=== PATIENT | female | born 1970 | race Caucasian/White ===

== ENCOUNTER 2017-06-01 20:57 | Emergency (ER) | payer OTHER ==
[~2017-06-01] VITALS: Ht 157.5 cm; Wt 100.0 kg
[~2017-06-01 20:57] MED LIST: ALBU8.5H2 INHALATION; BACL20TA PO; FLUT100D2 IH; IBUP-1827 PO; LISI10TA PO; MONT10TA20 PO; SUMA50TA31 PO; mirena IMPLANT
[2017-06-01 21:04] VITALS: BP 141/93; PULSE 104; RESP 24; O2SAT 97
--- NOTE | 2017-06-01 21:13 | ED.REPORT ---
HPI-Dyspnea / Wheezing Date of Service Jun 01, 2017 ED Provider: Alexsander Valera MD Pt is a 46 year old female with a history of asthma and HTN who presents to the ED complaining of SOB onset 3 days ago. She c/o associated cough. She denies fever, leg pain or swelling, and any other symptoms. Pt reports that she was seen by [facility] yesterday; her chest x-ray was negative, and she was prescribed azithromycin and prednisone by her PCP 4 days ago without relief. The pt denies a history of blood clots, and she also denies smoking. Nursing Notes Stated Complaint: SHORTNESS OF BREATH Chief Complaint: Respiratory Complaints Nursing Notes Reviewed: Yes Allergies: Coded Allergies: acetaminophen (Unverified Allergy, Unknown, hives, 08/06/16) erythromycin base (Unverified Allergy, Unknown, nausea, 08/06/16) Uncoded Allergies: ADHESIVE TAPES (Allergy, Unknown, blisters, 08/06/16) Scheduled ([mirena]) 20mcg/24hours 20 MCG IMPLANT DAILY Baclofen (Baclofen) 20 Mg Tablet 20 MG PO HS Fluticasone Propionate (Flovent Diskus) 100 Mcg Disk.w.dev 1 PUFF IH BID Lisinopril (Lisinopril) 10 Mg Tablet 10 MG PO DAILY Montelukast (Singulair) 10 Mg Tablet 10 MG PO HS Prednisone (PredniSONE) 20 Mg Tablet 20 MG PO TID Scheduled PRN Albuterol HFA (Proair HFA) 8.5 Gm Hfa.aer.ad 2 PUFFS INHALATION Q4H PRN PRN For Shortness of Breath Benzonatate (Benzonatate) 200 Mg Capsule 200 MG PO TID PRN PRN For Cough Ibuprofen (Ibuprofen) 600 Mg Tablet 600 MG PO TID PRN PRN For Pain Sumatriptan Succinate (Imitrex) 50 Mg Tablet 50 MG PO Q2H PRN PRN migraine MR [id number] NTE 200mg/24hr General Time Seen by MD: 21:11 Chief Complaint Shortness of breath Hx Obtained From: Patient Arrived By: Walk-in Sudden in Onset?: No Onset Occurred: 3 days ago Symptom Duration: Since onset Severity: Current: No pain currently Severity: Maximum: No pain Recent Healthcare: Recent doctor visit Similar Sx Previous: No Past Medical History Past Medical History Right carpometacarpal joint trauma Reports: Asthma, Hypertension Past Surgical History Tubal ligation Bilateral shoulders Family History Denies blood clots Smoking History Never Smoker Social History Alcohol Use: Denies alcohol use Drug Use: Denies drug use Other Social History: Good social support, Ambulatory Status Independent Review of Systems Constitutional: Denies: Fever Respiratory: Reports: Non-productive cough, Shortness of breath Musculoskeletal: Denies: Extremity pain, Extremity swelling Complete sys rev & neg: except as marked. Physical Exam Initial Vital Signs Vital Signs (First) Date Time Temp Pulse Resp B/P Pulse Ox O2 Delivery O2 Flow Rate FiO2 06/01/17 21:04 37 104 24 141/93 97 Room Air Initial VS: Reviewed, Vital signs abnormal Head / Eyes: Atraumatic, Normocephalic Abdomen / GI: Soft, Non-tender Extremities: Vascular intact, Neuro intact Skin: Warm, Dry, No cyanosis Neurologic: Alert, Oriented, Nonfocal Psychiatric: Mood/affect normal, Behavior normal General/Constitutional: Awake, Alert, Cooperative Neck: Atraumatic, Full range of motion Respiratory / Chest: Atraumatic, Breath sounds = bilat Few scattered wheezes. Tachypneic and hyperventilating. Cardiovascular: Heart rate NL, Regular rhythm, Heart sounds NL Interpretation & Diagnostics Lab Results Interpretation Result Diagram: 06/01/17 21406/01/17 214 Test 06/01/17 21:45 White Blood Count 6.6th/mm3 (3.8-10.1) Red Blood Count 4.31mil/mm3 (3.90-5.20) Hemoglobin 12.9g/dL (12.0-15.6) Hematocrit 39.3% (35.0-46.0) Mean Corpuscular Volume 91.2fL (81-100) Mean Corpuscular Hemoglobin 29.9pg (27.0-35.0) Mean Corpuscular Hemoglobin Concent 32.8% (32.0-37.0) Red Cell Distribution Width 14.4% (12.3-15.4) Platelet Count 269bil/L (150-400) Neutrophils (%) (Auto) 69.7% (40-74) Lymphocytes (%) (Auto) 17.7% (14-46) Monocytes (%) (Auto) 11.9% (4-12) Eosinophils (%) (Auto) 0% (0-5) Basophils (%) (Auto) 0.2% (0-3) D-Dimer < 0.50mg/L FEU (<0.50) Sodium Level 137mEq/L (134-144) Potassium Level 4.3mEq/L (3.5-5.2) Chloride Level 99mEq/L (97-108) Carbon Dioxide Level 23mmol/L (18-29) Blood Urea Nitrogen 9mg/dL (6-24) Creatinine 0.82mg/dL (0.57-1.00) Estimat Glomerular Filtration Rate 107mL/min (>59) Glucose Level 113mg/dL (60-99) Calcium Level 9.5mg/dL (8.5-10.1) Total Bilirubin 0.2mg/dL (0.0-1.2) Aspartate Amino Transf (AST/SGOT) 22U/L (0-50) Alanine Aminotransferase (ALT/SGPT) 20U/L (0-32) Alkaline Phosphatase 46U/L (25-150) Troponin T 0.010ug/L (0.0-0.011) Total Protein 7.3g/dL (6.4-8.4) Albumin 4.0g/dL (3.4-5.0) Hold Aquino Top Tube Received (Received) Lab values outside NL range: no clinical significance. ECG Interpretation ECG Interpretation: Sinus rhythm with a rate of 95. Time: 21:49 Interpreted by: ED physician Re-Eval/Medical Decision Med Decision/Clinical Course 46-year-old who has had cough and wheezing for the last few days. She was seen at urgent care with a negative x-ray. She was placed on prednison 10 mg daily for 5 days and albuterol inhaler to be used twice daily. Her chest x-ray from that visit was reviewed and indeed was negative. She presents now with increasing respiratory distress and a cough that will not stop. She was given an nebulizer with albuterol and DuoNeb with improvement. She was also given a dose of Tessalon with improvement of her cough. She will be discharged home with increased dose of prednisone, Tessalon Perles for cough, and instructions to use her albuterol inhaler much more frequently as often as every 2 hours. No additional antibiotics were given. Source of Hx: Old records Re-Evaluation/Progress : Time of Eval: 22:58 )( Re-Eval Resp / Chest: Breath sounds normal Patient Status: Condition improved Re-Evaluation/Progress Note: Pt rechecked. Informed pt of results and plan for discharge. Pt understands and agrees with plan for discharge. F/U instructions and RTER warnings given. All questions addressed. Counseled Regarding: Diagnosis, Lab results, Need for follow-up, When/why to return to ED Discharge & Departure Impression: Primary Impression: Acute bronchitis Bronchitis organism: unspecified organism Qualified Code: J20.9 - Acute bronchitis, unspecified Additional Impression: Reactive airway disease Asthma severity: mild persistent Asthma complication type: with acute exacerbation Qualified Code: J45.31 - Mild persistent asthma with (acute) exacerbation Disposition: Home Discharge Condition All VS Reviewed: Yes Condition: Stable Patient Instructions: Reactive Airways Disease (ED) Additional Instructions: You may use your albuterol inhaler every 2 hours if needed. Increase your prednisone to 20 mg 3 times a day for 5 days. Benzonatate (Tessalon Perles) 200 mg 3 times daily as needed for cough. It is okay to use [id number] cough medications with this. Further antibiotics would not be helpful. Referrals: Juancarlos Gibbons DO (PCP) [facility] Attestation Portions of this note were transcribed by Adilene Torrez. I, Dr. Valera personally performed the history, physical exam and medical decision-making; I reviewed and confirmed the accuracy of the information in the transcribed note. Signed by: Alfred Schneider, 06/01/17 and 22:50. copies to: Juancarlos Gibbons Howard L MD Jun 01, 2017 21:13 Adilene Bowser Jun 01, 2017 21:22
[2017-06-01] MEDS ORDERED: Albuterol 2.5 mg/3 mL Inhalation Solution NEB ONE (21:20)
[2017-06-01] MEDS ORDERED: Albuterol-Ipratropium 3 mL Inhalation Solution NEB ONE (21:20)
[2017-06-01 21:52] LABS: BASOPHILS % (AUTO) 0.2 % (0-3); EOSINOPHILS % (AUTO) 0 % (0-5); MONOCYTES % (AUTO) 11.9 % (4-12); Mean Corpuscular Hemoglobin 29.9 pg (27.0-35.0); Mean Corpuscular Volume 91.2 fL (81-100); NEUTROPHILS % (AUTO) 69.7 % (40-74); Platelet Count 269 bil/L (150-400)
[2017-06-01 21:56] VITALS: PULSE 93; RESP 18; O2SAT 95
[2017-06-01 22:24] LABS: TROPONIN T 0.01 ug/L (0.0-0.011)
[2017-06-01] MEDS ORDERED: predniSONE 20 mg Tablet PO ONE (23:05)
[2017-06-01] MEDS ORDERED: BENZ200C44 PO (23:11)
[2017-06-01] MEDS ORDERED: PRE20 PO (23:11)
[2017-06-01] MEDS ORDERED: PREDNISONE PO ONE ×4 (23:15→23:20)
[2017-06-01 23:28] VITALS: BP 135/87; PULSE 82; RESP 18; O2SAT 97
== END 2017-06-01 23:29 | disposition home or self-care (01) ==
LOC: SED 20:57
DX: J20.9 Acute bronchitis, unspecified (principal); J45.31 Mild persistent asthma with (acute) exacerbation; I10 Essential (primary) hypertension; Z88.1 Allergy status to other antibiotic agents; Z79.899 Other long term (current) drug therapy
CPT/HCPCS: 36415; 80053; 84484; 85025; 85378; 93005; 94640; 94664; 99284; J7613; J7620